=== PATIENT | male | born 1980 | race Caucasian/White ===

== ENCOUNTER 2016-10-25 04:06 | Emergency (ER) | payer SELFPAY ==
[2016-10-25 04:14] VITALS: BP 119/69; PULSE 73; RESP 14; O2SAT 96
--- NOTE | 2016-10-25 04:43 | EDPHY ---
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 For the last 3 hours. He noticed this 1st at about 1 or 2:00 a.m. when he was texting to a friend and had to repeat the contents of the text over and over again. He also said he did several Google search is of the same topic without realizing this. This is never happened to him before. He has not had any memory loss, slurring of his speech, numbness or weakness of his arms or legs. He does not have any headache, changes in his vision. He was concerned and was worried about a stroke so he has come into the hospital. He has no personal or family history of vascular disease or stroke. He is visiting from [place], though has been here from [facility] several weeks. He does not sleep during usual hours and often times is up at this hour usually. REVIEW OF SYSTEMS Constitutional: No fever, no chills. Eyes: No discharge. ENT: No sore throat. Cardiovascular: No chest pain, no palpitations. Respiratory: No cough, no shortness of breath. Gastrointestinal: No abdominal pain, no vomiting. Genitourinary: No hematuria. Musculoskeletal: No back pain. Skin: No rashes. Neurological: No headache. PMHx: Healthy Soc Hx: No drug or alcohol use FHx: No family history of stroke PHYSICAL General Appearance: Alert, no distress Eyes: Pupils equal and round no pallor or injection ENT, Mouth: Mucous membranes moist Respiratory: There are no retractions, lungs are clear to auscultation Cardiovascular: Regular rate and rhythm Gastrointestinal: Abdomen is soft and non-tender, no masses, bowel sounds normal Neurological: Alert and oriented x3, cranial nerves 2-12 intact, 5/5 strength in upper and lower extremities which is symmetric, normal fluids speech, normal recall, normal short and long-term memory Skin: Warm and dry, no rashes Musculoskeletal: Neck is supple non tender Extremities: symmetrical, full range of motion Psychiatric: Patient is oriented X 3, there is no agitation Source: Patient Exam Limitations: No limitations - Personal History Current Tetanus/Diphtheria Vaccine: Unsure - Medical/Surgical History Hx Asthma: No Hx Chronic Respiratory Disease: No Hx Diabetes: No Hx Cardiac Disease: No Hx Renal Disease: No Hx Cirrhosis: No Hx Alcoholism: No Hx HIV/AIDS: No Hx Splenectomy or Spleen Trauma: No Other PMH: PSH: R knee surgery, L ankle surgery. no PMH - Social History Smoking Status: Never smoked Constitutional: Initial Vital Signs Heart Rate 73 10/25/16 04:12 Respiratory Rate 14 10/25/16 04:12 Blood Pressure 119/69 10/25/16 04:12 O2 Sat (%) 96 10/25/16 04:12 O2 Delivery Mode Room Air Allergies/Adverse Reactions: No Known Allergies Allergy (Unverified 10/25/16 04:11) Home Medications: Medication Instructions Recorded NK [No Known Home Meds] 10/25/16 Medical Decision Making Differential Diagnosis: This is a 35-year-old male who is healthy who presents from home with 3 hours of some memory difficulties. His NIH stroke score is 0. I doubt any stroke, mass, other serious intracranial pathology contributing to his symptoms. This could be related to fatigue or insomnia. I have explained this to him. He is happy to be discharged. We discussed return precautions. Departure - Departure Disposition: Home, Routine, Self-Care Clinical Impression: Memory change Condition: Good Instructions: Altered Mental Status (ED) Additional Instructions: Please monitor your symptoms at home. You should return to the emergency room if you are worse in any way or have any difficulty remembering things like the date. Otherwise please follow-up with your regular doctor when you have the chance. Referrals: NONE *PRIMARY CARE P,. [Primary Care Provider] - As per Instructions
== END 2016-10-25 05:08 | disposition home or self-care (01) ==
DX: R41.3 Other amnesia (principal)